=== PATIENT | female | born 1960 | race Caucasian/White ===

== ENCOUNTER 2018-05-31 12:09 | Inpatient (IN) ==
[2018-05-31] MEDS ORDERED: Aluminum/Magnesium/Simethacone Susp 30 ML UDC PO PRN (15:39)
[2018-05-31] MEDS ORDERED: Bisacodyl 10 MG Supp RECTAL PRN (15:39)
[2018-05-31] MEDS: Senna/Docusate Sodium 8.6/50 MG Tablet PO SCH (21:11)
[2018-06-01 08:12] LABS: Anion Gap 9 meq/L (5-15); Blood Urea Nitrogen 9 mg/dL (7-18); Calcium 8.1 mg/dL (8.5-10.1); Carbon Dioxide 29.5 meq/L (21.0-32.0); Chloride 107 meq/L (98-107); Cholesterol 179 mg/dL (120-200); Glomerular Filtration Rate Greater Than 89 mL/min (>89); Glucose,Random 86 mg/dL (74-106); Potassium 3.3 meq/L (3.5-5.1); Sodium 145 meq/L (136-145); Triglycerides 83 mg/dL (42-150)
[2018-06-01 08:14] LABS: HDL Cholesterol 68.8 mg/dL (40.0-60.0); LDL Cholesterol,Calculated 94 mg/dL (0-99)
[2018-06-01] MEDS: Senna/Docusate Sodium 8.6/50 MG Tablet PO SCH (08:33)
--- NOTE | 2018-06-01 12:25 | P.HPPSY ---
Provisional Diagnosis Admission Date: May 31, 2018 15:03 [place] I.: 1. Adjustment disorder with disturbance of emotions and conduct Rule out major depressive episode 2. Alcohol use, rule out use disorder [place] II.: Deferred Competence Certification of Person's Competence To Provide Express and Informed Consent I have personally examined Camille Soto, a person being served at [facility] on, June 01, 2018 1225. Express and informed consent means consent voluntarily given in writing, by a competent person, after sufficient explanation and disclosure of the subject matter involved to enable the person to make a knowing and willful decision without any element of force, fraud, deceit, duress, or other form of constraint or coercion. This person is 18 years of age or older, is not now known to be incompetent to consent to treatment with a guardian advocate, and does not have a health care surrogate or proxy currently making medical treatment decisions. I have found this person to be one of the following: [X] Competent to provide express and informed consent, as defined above, for voluntary admission to this facility and is competent to provide express and informed consent for treatment. He/she has the consistent capacity to make well reasoned, willful, and knowing decisions concerning his or her medical or mental health treatment. The person fully and consistently understands the purpose of the admission for examination/placement and is fully capable of personally exercising all rights assured under [place] Incompetent to provide express and informed consent to voluntary admission, and this is incompetent to provide express and informed consent to treatment. The person must be transferred to involuntary status and a petition for a guardian advocate filed with the Circuit Court. [] Refusing to provide express and informed consent to voluntary admission but is competent to provide express and informed consent for treatment. The person must be discharged or transferred to involuntary status. Form shall be completed within 24 hours of a person's arrival at the receiving facility and filed in the clinical record of each person: 1. Admitted on a voluntary basis 2. Permitted to provide express and informed consent to his/her own treatment 3. Allowed to transfer from involuntary to voluntary status 4. Prior to permitting a person to consent to his or her own treatment after having been previously found incompetent to consent to treatment. History of Present Illness Capacity: Has capacity Chief Complaint: Overdose History of Present Illness: Ms. Soto is a 57-year-old female with a reported history of depression who presents in transfer from [facility] under a Rodrigues act. Documentation from outside hospital reviewed. Patient presented there initially on 05/28 following an overdose on approximately 30-40 carbamazepine tablets, which she takes for trigeminal neuralgia. Patient was admitted to the medical unit at [facility] for management of her her overdose. She was seen in psychological consultation by Dr. Mancia. Reviewing our electronic medical record, I see no previous psychiatric contact within our system. Patient seen and examined with nurse, Irena. Chart reviewed. Case discussed with nursing staff. On my examination today, the patient reports that her presenting ingestion was mediated by alcohol use. She says that she was feeling upset because of ongoing conflict with her over his emotional and physical distance. She went into her room to make her overdose, although was reportedly at home. She reports that following her overdose she called her sisters and one of her sisters called 911. Presently, she denies any ongoing suicidal ideation, intent or plan. She does admit to feeling somewhat depressed and guilty, but I can elicit no other depressive symptoms. She does admit that she has had suicidal thoughts in the past while intoxicated. I can elicit no symptoms of hypomania or torin presently, nor can I elicit any history of same. She denies any audiovisual hallucination. No delusional material elicited. The remainder of the psychiatric ROS is negative. No acute physical complaints. Past psychiatric history: The patient reports a history of depression. She is not presently under the care of a psychiatrist or therapist, although she has spoken with the therapist in the past. She is reportedly prescribed Lexapro 10 mg daily and Wellbutrin 150 mg daily from her general practitioner. She denies a history of psychiatric admissions or suicide attempts. Family history: The patient reports that her daughter and sister both struggle with depression and are on medication although she cannot remember what. She also notes that her father had some depressive symptoms but did not receive a formal diagnosis so far she knows. She denies a family history of substance use disorder or suicide. Chemical dependency history: The patient reports that she is a daily drinker. She usually drinks one beer or 2 glasses of wine. She has had a history of blackouts from heavy drinking in the past but denies any other consequences from her drinking including DUIs, job loss or relationship problems. No other substance use reported. Social history: The patient lives with her third . She has 3 children from her first marriage. 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 She denies any history. Denies any legal history. Denies any access to guns or firearms. She is a [employer]ism. She denies any history of trauma. Past medical history: Includes a history of trigeminal neuralgia and migraine headache. - Inpatient Certification I certify that the inpatient services were ordered in accordance with Medicare regulations governing the order. This includes certification that hospital inpatient services are reasonable and necessary and in the case of services not specified as inpatient-only under 42 CFR 419.22(n), that they are appropriately provided as inpatient services in accordance to with the 2-midnight benchmark under 43 CFR 412.3(e) I certify that inpatient psychiatric hospital services are medically necessary. Evaluation and treatment and/or diagnostic testing are expected to improve the patient's condition. The patient needs on a daily basis, active treatment furnished directly by or requiring the supervision of inpatient psychiatric facility personnel. Estimated Total Length of Stay (Days): 5 (3-5) Plans for Post Hospital Care: Not yet determined Review of Systems All other systems reviewed negative except as stated in HPI [facility] - History History Provided By: Patient, Medical Record - Medical History Medical History: Medical History (Last Updated 05/31/18 @ 17:46 by Irena Guevara RN) Depression Fibromyalgia Hx of hysterectomy Trigeminal neuralgia of right side of face Vertigo - Tobacco History Second Hand Smoke Exposure: No Smoking Status: Never smoker - Alcohol History How Often Do You Have a Drink Containing Alcohol: 4 or more times a week - Substance Use History Substance History: Active Abuse - Substance Use Type Alcohol Status: Active Route Used: By Mouth Frequency: Pt reports 1-2 glasses of wine daily Reason for Use: Calm Down, Feels Good Quality Measures - Patient Strengths Patient's strengths (minimum of 2): In a monitored setting. Verbally fluent. Medications and Allergies Active Medications: Active Medications Al Hydrox/Mg Hydrox/Simethicone (Mag-Al Plus Susp Liq) 30 ml PO Q6H PRN PRN Reason: DYSPEPSIA Al Hydroxide/Mg Hydroxide (Milk Of Magnesia Liq) 30 ml PO Q12H PRN PRN Reason: Mild Constipation Bisacodyl (Dulcolax Supp) 10 mg RECTAL DAILY PRN PRN Reason: SEVERE CONSITIPATION Lactulose (Lactulose Liq) 30 ml PO DAILY PRN PRN Reason: SEVERE CONSITIPATION Senna/Docusate Sodium (Maddy-Colace) 1 tab PO BID [facility]ARA Last Admin: 06/01/18 08:33 Dose: Not Given Sennosides (Senokot) 17.2 mg PO Q12H PRN PRN Reason: Moderate Constipation Allergies Allergy/AdvReac Type Severity Reaction Status Date / Time amoxicillin Allergy Unknown Hives Verified 05/31/18 15:29 adhesive tape AdvReac Unknown Redness of Verified 05/31/18 15:30 Skin Home Medications Medication Instructions Recorded Confirmed Type bupropion HCl 150 mg PO QAM 05/31/18 05/31/18 History carbamazepine [Tegretol] 400 mg PO BID 05/31/18 05/31/18 History escitalopram oxalate [Lexapro] 10 mg PO DAILY 05/31/18 05/31/18 History estradiol 1 patch TRANSDERMAL QWEEK 05/31/18 05/31/18 History vkuqgyz-wzyapxjhg-zpflekyriogb 1 cap PO Q4H PRN 05/31/18 05/31/18 History zolmitriptan 0 PO .COMPLEX PRN 05/31/18 History Results - Labs CBC & Chem 7: 06/01/18 06:50 Labs: Laboratory Results - last 24 hr 06/01/18 06:50 Sodium 145 Potassium 3.3 L Chloride 107 Carbon Dioxide 29.5 Anion Gap 9 BUN 9 Creatinine 0.44 L Estimated GFR Greater than 89 Random Glucose 86 Calcium 8.1 L Triglycerides 83 Cholesterol 179 LDL Cholesterol, Calc 94 HDL Cholesterol 68.8 H Cholesterol/HDL Ratio 2.60 Laboratories from outside hospital reviewed: Carbamazepine level on initial presentation was greater than 20. Carbamazepine level trended downward, and last level I see was 8.0 CBC at outside hospital from 05/31 revealed mild macrocytic anemia. No evidence of transaminitis. Urine toxicology on presentation to outside hospital was negative. Exam Vital signs: Vital Signs 05/31/18 15:45 05/31/18 18:00 05/31/18 21:00 Temperature 98.8 F 98.4 F Pulse Rate 64 65 62 Respiratory Rate 16 16 Blood Pressure 158/69 H 173/97 H 138/60 Pulse Oximetry 98 98 Intake & Output 05/31/18 06/01/18 06/01/18 18:59 06:59 18:59 Weight 70.2 kg Other: Weight On Admission 70.2 kg Narrative: Physical examination completed by medical provider at outside hospital. On my examination today, the patient appears to be in no acute physical distress. No motor abnormalities noted. No signs of GABAergic withdrawal noted. Labs and vital signs reviewed. Mental Status Examination Appearance: Appropriate Consciousness: Alert Orientation: x4 Motor Activity: Normal gait, Other (No motor abnormalities noted) Speech: Unremarkable Language: Adequate Fund of Knowledge: Adequate Attention and Concentration: Adequate Memory: Unremarkable (Grossly intact on clinical exam) Mood: Other (Mildly dysphoric) Affect: Other (Tearful at times) Thought Process & Associations: Intact, Logical, Linear Thought Content: Appropriate Hallucination Type: None Delusion Type: None Suicidal Ideation: No Suicidal Plan: No Suicidal Intention: No Homicidal Ideation: No Homicidal Plan: No Homicidal Intention: No Insight: Fair Judgment: Impulsive Assessment and Plan - Assessment (1) Adjustment disorder with mixed disturbance of emotions and conduct Code(s): F43.25 - Adjustment disorder with mixed disturbance of emotions and conduct Status: Acute (2) Alcohol use Code(s): Z78.9 - Other specified health status Status: Acute - Plan Plan: 57-year-old female with psychiatric history as detailed above who presents in transfer from outside hospital under a Rodrigues act. On my examination today, the patient reports that she made her overdose impulsively and in the setting of alcohol intoxication. Although she denies ongoing suicidal ideation she does admit to feelings of depression, although it is not clear if her current symptomatology meets criteria for a major depressive episode. I will plan to admit the patient to the inpatient psychiatric unit for observation for any ongoing impairments in safety as well as for medication adjustment. Admit inpatient. Voluntary status. Titrate Lexapro to 20 mg daily to target dysphoria. Continue Wellbutrin as ordered. Patient denies a history of seizure disorder or eating disorder. We did discuss concerns related to Wellbutrin in patients with alcohol use disorder. Atarax as needed for anxiety. R/B/A for medications discussed with patient. Resume general medical medications. Hospitalist consult. CIWA scale with Ativan for the management of any withdrawal. Thiamine and folate. Seizure precautions. Vitals every shift. Counselor to see. Disposition planning. Estimated length of stay: 3-5 days. Justification for Continued Inpatient Stay: See above Discharge Planning: Pending outcome of observation Request Healthcare Surrogate/Guardian Advocate?: No
[2018-06-01] MEDS ORDERED: [UNRECOGNIZED DRUG - OTHER] PO PRN (13:27)
[2018-06-01] MEDS ORDERED: Acetaminophen 325 MG Tablet PO PRN (13:29)
[2018-06-01] MEDS ORDERED: ESTRADIOL 0.075 MG/24 HR TOPICAL SCH (14:00)
[2018-06-01] MEDS ORDERED: LORazepam 1 MG Tablet PO PRN (14:53)
[2018-06-01] MEDS: Escitalopram 10 MG Tablet PO SCH (15:17)
[2018-06-01] MEDS: buPROPion 150 MG 12 HR Tablet PO SCH (15:17)
[2018-06-01 16:48] LABS: Hemoglobin A1c 5.1 % (4.3-6.0)
--- NOTE | 2018-06-01 17:00 | P.CONIM ---
History of Present Illness Requesting Physician: Marco Antonio Norwood Reason for Consult: Medical management Primary Care Provider: UNKNOWN History of Present Illness: This a 57-year-old female patient with past medical history which includes depression, fibromyalgia, trigeminal neuralgia, migraine headaches, vertigo. Patient currently inpatient psychiatric center we have been consulted for assistance with medical management. Per nurse and patient she was recently admitted to [facility] 05/28/2018 after Tegretol overdose. Patient reports she took approximately 30-40 200 mg Tegretol. Patient then presented to [facility] required intubation was extubated, stabilized and transferred to inpatient psychiatric center for further psychiatric management. Patient's nurse was verbally told that patient had a sputum culture which was, "positive," although we do not have records of sputum culture or results. Patient does endorse continued cough which is currently dry and nonproductive. Patient feels that her cough is getting better. Patient denies subjective fevers, chills nausea vomiting diarrhea constipation shortness of breath or chest pain. Review of Systems All other systems reviewed negative except as stated in HPI [facility] - History History Provided By: Patient, Medical Record - Medical History Medical History: Medical History (Last Updated 05/31/18 @ 17:46 by Irena Guevara RN) Depression Fibromyalgia Hx of hysterectomy Trigeminal neuralgia of right side of face Vertigo - Tobacco History Second Hand Smoke Exposure: No Smoking Status: Never smoker - Alcohol History How Often Do You Have a Drink Containing Alcohol: 4 or more times a week - Substance Use History Substance History: Active Abuse - Substance Use Type Alcohol Type: only drinks a glass a day but willing to stop has had times with none Status: Active Route Used: By Mouth Frequency: Pt reports 1-2 glasses of wine daily Reason for Use: Calm Down, Feels Good Comment: does not appear addicted but does not want to take risks Medications and Allergies Active Medications: Active Medications Acetaminophen (Tylenol) 650 mg PO Q4H PRN PRN Reason: PAIN 1-10 AND/OR FEVER >101F Last Admin: 06/01/18 15:17 Dose: 650 mg Al Hydrox/Mg Hydrox/Simethicone (Mag-Al Plus Susp Liq) 30 ml PO Q6H PRN PRN Reason: DYSPEPSIA Al Hydroxide/Mg Hydroxide (Milk Of Magnesia Liq) 30 ml PO Q12H PRN PRN Reason: Mild Constipation Bupropion HCl (Wellbutrin Sr) 150 mg PO DAILY [facility] Last Admin: 06/01/18 15:17 Dose: 150 mg Carbamazepine (Tegretol) 400 mg PO BID [facility] Escitalopram Oxalate (Lexapro) 20 mg PO DAILY [facility] Last Admin: 06/01/18 15:17 Dose: 20 mg Flumazenil (Romazecon Inj) 0.2 mg IV.PUSH Q1M PRN PRN Reason: OVERSEDATION Folic Acid (Folic Acid) 1 mg PO DAILY [facility] Stop: 06/07/18 08:59 Hydroxyzine HCl (Atarax) 25 mg PO Q6H PRN PRN Reason: ANXIETY Lorazepam (Ativan) 1 mg PO Q4H PRN PRN Reason: for CIWA 8-10 Lorazepam (Ativan) 2 mg PO Q2H PRN PRN Reason: for CIWA 11-14 Lorazepam (Ativan Inj) 2 mg IV.PUSH Q1H PRN PRN Reason: for CIWA 15-20 Lorazepam (Ativan Inj) 1 mg IV.PUSH Q4H PRN PRN Reason: for CIWA 8-10 Lorazepam (Ativan Inj) 2 mg IV.PUSH Q2H PRN PRN Reason: for CIWA 11-14 Lorazepam (Ativan Inj) 2 mg IV.PUSH Q15M PRN PRN Reason: for CIWA > 20 Multivitamins/Minerals (Theragran-M) 1 tab PO DAILY [facility] Stop: 06/07/18 08:59 (Isometh-Dichloral- Acetaminophn [ Isometh-Dichloral- Acetaminophn 65/100/325mg ] 1 Cap) 1 each PO Q4H PRN PRN Reason: Migraine Headache Estradiol 0.075mg/ (24hr Patch) 1 each TOPICAL WEEKLY [facility] Thiamine HCl (Vitamin B1) 100 mg PO DAILY [facility] Allergies Allergy/AdvReac Type Severity Reaction Status Date / Time amoxicillin Allergy Unknown Hives Verified 05/31/18 15:29 adhesive tape AdvReac Unknown Redness of Verified 05/31/18 15:30 Skin Home Medications Medication Instructions Recorded Confirmed Type bupropion HCl 150 mg PO QAM 05/31/18 05/31/18 History carbamazepine [Tegretol] 400 mg PO BID 05/31/18 05/31/18 History escitalopram oxalate [Lexapro] 10 mg PO DAILY 05/31/18 05/31/18 History estradiol 1 patch TRANSDERMAL QWEEK 05/31/18 05/31/18 History togmlpv-zkjuzpzbr-fgbviytulnvy 1 cap PO Q4H PRN 05/31/18 05/31/18 History zolmitriptan 0 PO .COMPLEX PRN 05/31/18 History Exam Vital signs: Vital Signs 05/31/18 18:00 05/31/18 21:00 Temperature 98.4 F Pulse Rate 65 62 Respiratory Rate 16 Blood Pressure 173/97 H 138/60 Pulse Oximetry 98 Intake & Output 05/31/18 06/01/18 06/01/18 18:59 06:59 18:59 Weight 70.2 kg Other: Weight On Admission 70.2 kg Narrative: GENERAL: This is a well-nourished, well-developed patient, in no apparent distress. CARDIOVASCULAR: Regular rate and rhythm RESPIRATORY: Clear to auscultation. Breath sounds equal bilaterally. GASTROINTESTINAL: Abdomen soft, non-tender, nondistended. Normal active bowel sounds MUSCULOSKELETAL: Extremities without clubbing, cyanosis, or edema. NEURO: Alert & Oriented x4 to person, place, time, situation. Moves all ext x4 Results - Labs CBC & Chem 7: 06/01/18 06:50 Labs: Laboratory Results - last 24 hr 06/01/18 06:50 Sodium 145 Potassium 3.3 L Chloride 107 Carbon Dioxide 29.5 Anion Gap 9 BUN 9 Creatinine 0.44 L Estimated GFR Greater than 89 Random Glucose 86 Calcium 8.1 L Triglycerides 83 Cholesterol 179 LDL Cholesterol, Calc 94 HDL Cholesterol 68.8 H Cholesterol/HDL Ratio 2.60 Assessment and Plan - Plan Adjustment disorder with mixed disturbance of emotion and conduct Management per psychiatric team Cough Patient recently intubated for Tegretol overdose Request sputum culture and discharge summary from [facility] Repeat sputum culture CT chest without contrast to further evaluate CBC Patient currently afebrile and feels that the cough is getting better we will hold off on antibiotic treatment awaiting further information as patient seems stable DVT prophylaxis patient is ambulatory and low risk Discussed case with supervising physician Dr. Burgos
[2018-06-01 18:01] LABS: Albumin 3.1 g/dL (3.4-5.0)
[2018-06-01 18:26] LABS: Total Protein 6.5 g/dL (6.4-8.2)
[2018-06-01 18:38] LABS: Baso % (Auto) 0.8 % (0.0-2.0); Eos # (Auto) 0.1 th/mm3 (0.0-0.4); Eos % (Auto) 3.1 % (0.0-4.0); Hematocrit 30.8 % (35.0-46.0); Hemoglobin 10.9 gm/dL (11.6-15.3); Lymph # (Auto) 0.8 th/mm3 (1.0-4.8); Lymph % (Auto) 20.1 % (9.0-44.0); Mean Corpuscular HGB Conc 35.5 % (32.0-36.0); Mean Corpuscular Hemoglobin 34.7 pg (27.0-34.0); Mean Platelet Volume 7.5 fL (7.0-11.0); Mono # (Auto) 0.2 th/mm3 (0.0-0.9); Mono % (Auto) 6.4 % (0.0-8.0); Neut # (Auto) 2.7 th/mm3 (1.8-7.7); Neut % (Auto) 69.6 % (16.0-70.0); Platelet Count 254 th/mm3 (150-450); Red Blood Count 3.14 mil/mm3 (4.00-5.30); Red Cell Distribution Width 12.9 % (11.6-17.2); White Blood Count 3.9 th/mm3 (4.0-11.0)
[2018-06-01] MEDS: carBAMazepine 200 MG Tablet PO SCH (20:52)
[2018-06-01] MEDS ORDERED: carBAMazepine 200 MG Tablet PO SCH ×2 (21:00)
--- NOTE | 2018-06-02 00:13 | CT ---
EXAM DATE: 06/02/2018 12:02 AM EDT AGE/SEX: 57 years / Female INDICATIONS: Cough; post recent intubation due to overdose. CLINICAL DATA: This is the patient's initial encounter. Patient reports that signs and symptoms have been present for 1 day and indicates a pain score of 0/10. MEDICAL/SURGICAL HISTORY: . Fibromyalgia Hysterectomy. RADIATION DOSE: 6.59 CTDI (mGy) COMPARISON: No prior exams available for comparison. TECHNIQUE: Multiple contiguous axial images were obtained through the chest without contrast. Image s were obtained in suspended respiration using multiple row detector helical technique. Using automa allison exposure control and adjustment of the mA and/or kV according to patient size, radiation dose was kept as low as reasonably achievable to obtain optimal diagnostic quality images. DICOM format imag e data is available electronically for review and comparison. FINDINGS: There are very small bilateral pleural effusions. A mildly nodular infiltrate is seen in the bilatera l lower lobes. Individual nodules are up to 7 mm in size in the left lower lobe. No large or dense co nsolidation. No pneumothorax. No mediastinal, hilar or axillary lymphadenopathy. Coronary artery calcification present. 4 cm cyst seen of the visualized right kidney. CONCLUSION: 1. Very small bilateral pleural effusions. 2. Localized area of mildly nodular consolidation of the lower lobes, most likely infectious or infl ammatory. Individual nodules are up to 7 mm in size. Six-month follow-up noncontrast chest CT is true mmended. 3. Coronary artery calcification. Electronically signed by: iMn Zamora MD 06/02/2018 12:11 AM EDT
[2018-06-02 07:56] LABS: Baso % (Auto) 0.7 % (0.0-2.0); Eos # (Auto) 0.1 th/mm3 (0.0-0.4); Eos % (Auto) 3.1 % (0.0-4.0); Hematocrit 32.6 % (35.0-46.0); Hemoglobin 10.9 gm/dL (11.6-15.3); Lymph # (Auto) 0.9 th/mm3 (1.0-4.8); Lymph % (Auto) 27.8 % (9.0-44.0); Mean Corpuscular HGB Conc 33.5 % (32.0-36.0); Mean Corpuscular Hemoglobin 32.9 pg (27.0-34.0); Mean Corpuscular Volume 98.2 fL (80.0-100.0); Mean Platelet Volume 6.8 fL (7.0-11.0); Mono # (Auto) 0.3 th/mm3 (0.0-0.9); Mono % (Auto) 9.1 % (0.0-8.0); Neut % (Auto) 59.3 % (16.0-70.0); Platelet Count 272 th/mm3 (150-450); Red Blood Count 3.32 mil/mm3 (4.00-5.30); Red Cell Distribution Width 12.3 % (11.6-17.2); White Blood Count 3.3 th/mm3 (4.0-11.0)
[2018-06-02 08:27] LABS: Anion Gap 6 meq/L (5-15); Blood Urea Nitrogen 13 mg/dL (7-18); Calcium 8.1 mg/dL (8.5-10.1); Carbon Dioxide 32.4 meq/L (21.0-32.0); Chloride 107 meq/L (98-107); Glomerular Filtration Rate Greater Than 89 mL/min (>89); Glucose,Random 91 mg/dL (74-106); Magnesium 2.2 mg/dL (1.5-2.5); Potassium 3.7 meq/L (3.5-5.1); Sodium 145 meq/L (136-145)
[2018-06-02] MEDS ORDERED: ESTRADIOL 0.075 MG/24 HR TOPICAL SCH (09:00)
[2018-06-02] MEDS: Escitalopram 10 MG Tablet PO SCH (09:15)
[2018-06-02] MEDS: Multivitamin/Minerals Therapeutic Tablet PO SCH (09:15)
[2018-06-02] MEDS: buPROPion 150 MG 12 HR Tablet PO SCH (09:15)
[2018-06-02] MEDS: Folic Acid 1 MG Tablet PO SCH (09:15)
[2018-06-02] MEDS: carBAMazepine 200 MG Tablet PO SCH ×2 (09:16→20:34)
--- NOTE | 2018-06-02 09:28 | P.TTN ---
- Patient Problems Problems: 1. Discharge planning 2. Medication compliance 3. Knowledge deficit 4. Lack of coping skills - Progress Toward Goals Provider Present: Dr. Ricky Norwood Provider Input: patient will need psychiatric follow up. collateral from family will be helpful Nurse(s) Present: compliant Psychiatric Counselors Present: Samantha Issa LCSW Psychiatric Therapist Input: discussed her motivation for therapy in length. she is presenting as she is well established with doctors in [place], provided information and wants them to be aware of what happened and have continuum of care, she is very regretful and ashamed of what has happened, she appears to have an adjustment disorder due to her marriage struggles. she is very direct and goal oriented and appears insightful Group Spec/RT/OT/SENA Present: SENA Mckeon (new, ) - Documentation Teaching Recipient: Patient
--- NOTE | 2018-06-02 11:37 | P.PNPSY ---
Subjective Chief Complaint: Overdose Remarks: Patient seen and examined with counselor and nurse. Chart reviewed. Case discussed with nursing staff. No behavioral issues noted overnight. Case discussed in treatment team. Counselor plans to refer patient for psychiatric services in [place] where the patient plans to go after discharge. She also engaged the patient in a discussion of her alcohol use. Patient also reportedly had a visit with her yesterday evening. On my examination today, the patient reports that her visit with went very well. She notes with satisfaction that was emotionally engaged in their conversation yesterday evening and says of their marriage "there is a lot more there than I thought." No ongoing suicidal ideation. Affect is brighter and more euthymic. Denies side effects from medications. No physical complaints. Hopeful for discharge tomorrow. Vital Signs Temp Pulse Resp BP Pulse Ox 06/02/18 05:38 98.6 F 55 L 17 128/58 L 95 06/01/18 16:55 97.9 F 61 20 154/70 H 98 Intake and Output 06/01/18 06/02/18 06/02/18 22:59 06:59 14:59 Intake Total 720 / 720 Balance 720 / 720 Intake: Oral 720 / 720 Other: Date of Last Bowel Movement 06/01/18 Laboratory Results - last 24 hr 06/01/18 06/01/18 06/01/18 06:50 06:50 06:50 WBC 3.9 L RBC 3.14 L Hgb 10.9 L Hct 30.8 L MCV 98.0 MCH 34.7 H MCHC 35.5 RDW 12.9 Plt Count 254 MPV 7.5 Neut % (Auto) 69.6 Lymph % (Auto) 20.1 [place] % (Auto) 6.4 Eos % (Auto) 3.1 Baso % (Auto) 0.8 Neut # (Auto) 2.7 Lymph # (Auto) 0.8 L [place] # (Auto) 0.2 Eos # (Auto) 0.1 Baso # (Auto) 0.0 WBC Differential . Differential Comment Auto diff final Sodium Potassium Chloride Carbon Dioxide Anion Gap BUN Creatinine Estimated GFR Random Glucose Hemoglobin A1c 5.1 Calcium Magnesium Total Bilirubin 0.2 Direct Bilirubin 0.1 Indirect Bilirubin 0.1 AST 10 L ALT 17 Alkaline Phosphatase 48 Total Protein 6.5 Albumin 3.1 L Vitamin B12 400 06/02/18 06/02/18 07:17 07:17 WBC 3.3 L RBC 3.32 L Hgb 10.9 L Hct 32.6 L MCV 98.2 MCH 32.9 MCHC 33.5 RDW 12.3 Plt Count 272 MPV 6.8 L Neut % (Auto) 59.3 Lymph % (Auto) 27.8 [place] % (Auto) 9.1 H Eos % (Auto) 3.1 Baso % (Auto) 0.7 Neut # (Auto) 2.0 Lymph # (Auto) 0.9 L [place] # (Auto) 0.3 Eos # (Auto) 0.1 Baso # (Auto) 0.0 WBC Differential . Differential Comment Auto diff final Sodium 145 Potassium 3.7 Chloride 107 Carbon Dioxide 32.4 H Anion Gap 6 BUN 13 Creatinine 0.51 Estimated GFR Greater than 89 Random Glucose 91 Hemoglobin A1c Calcium 8.1 L Magnesium 2.2 Total Bilirubin Direct Bilirubin Indirect Bilirubin AST ALT Alkaline Phosphatase Total Protein Albumin Vitamin B12 Labs reviewed. Stable anemia. Leukopenia noted. Vitamin B12 level within normal limits. Impressions Chest CT 06/01/18 00:00 CONCLUSION: 1. Very small bilateral pleural effusions. 2. Localized area of mildly nodular consolidation of the lower lobes, most likely infectious or inflammatory. Individual nodules are up to 7 mm in size. Six-month follow-up noncontrast chest CT is recommended. 3. Coronary artery calcification. Mental Status Examination Appearance: Appropriate Consciousness: Alert Orientation: x4 Motor Activity: Normal gait, Other (No abnormal motor movements noted) Speech: Unremarkable Language: Adequate Fund of Knowledge: Adequate Attention and Concentration: Adequate Memory: Unremarkable (Grossly intact on clinical exam) Mood: Other (Improved today) Affect: Appropriate, Euthymic Thought Process & Associations: Intact, Logical, Linear Thought Content: Appropriate Hallucination Type: None Delusion Type: None Suicidal Ideation: No Homicidal Ideation: No Insight: Fair Judgment: Impulsive Mental Status Exam Remarks: No signs of withdrawal noted. Assessment and Plan - Assessment (1) Adjustment disorder with mixed disturbance of emotions and conduct Code(s): F43.25 - Adjustment disorder with mixed disturbance of emotions and conduct Status: Acute (2) Alcohol use Code(s): Z78.9 - Other specified health status Status: Acute - Plan Plan: Presenting adjustment reaction appears to be resolving following outpouring of support from during visitation yesterday evening. Continue increased dose of Lexapro as ordered. Continue to monitor on the inpatient unit. Hospitalist input noted and appreciated. Continue other medications and care as ordered. Justification for Continued Inpatient Stay: Monitoring for impairment in safety, none noted Discharge Planning: Possible discharge tomorrow, Friday Request Healthcare Surrogate/Guardian Advocate?: No
--- NOTE | 2018-06-02 14:09 | P.PN ---
Subjective Interval history: Follow up: cough Patient feels that cough is getting better denies SOB Physical Exam Vital signs: Vital Signs 06/01/18 16:55 06/02/18 05:38 Temperature 97.9 F 98.6 F Pulse Rate 61 55 L Respiratory Rate 20 17 Blood Pressure 154/70 H 128/58 L Pulse Oximetry 98 95 Intake & Output 06/01/18 06/02/18 06/02/18 18:59 06:59 18:59 Intake Total 720 / 720 Balance 720 / 720 Intake: Oral 720 / 720 Other: Date of Last Bowel Movement 06/01/18 Narrative: GENERAL: This is a well-nourished, well-developed patient, in no apparent distress. CARDIOVASCULAR: Regular rate and rhythm RESPIRATORY: Clear to auscultation. Breath sounds equal bilaterally. GASTROINTESTINAL: Abdomen soft, non-tender, nondistended. Normal active bowel sounds MUSCULOSKELETAL: Extremities without clubbing, cyanosis, or edema. NEURO: Alert & Oriented x4 to person, place, time, situation. Moves all ext x4 Results - Labs CBC & Chem 7: 06/02/18 07:17 06/02/18 07:17 Laboratory Results - last 24 hr 06/01/18 06/01/18 06/01/18 06:50 06:50 06:50 WBC 3.9 L RBC 3.14 L Hgb 10.9 L Hct 30.8 L MCV 98.0 MCH 34.7 H MCHC 35.5 RDW 12.9 Plt Count 254 MPV 7.5 Neut % (Auto) 69.6 Lymph % (Auto) 20.1 [place] % (Auto) 6.4 Eos % (Auto) 3.1 Baso % (Auto) 0.8 Neut # (Auto) 2.7 Lymph # (Auto) 0.8 L [place] # (Auto) 0.2 Eos # (Auto) 0.1 Baso # (Auto) 0.0 WBC Differential . Differential Comment Auto diff final Sodium Potassium Chloride Carbon Dioxide Anion Gap BUN Creatinine Estimated GFR Random Glucose Hemoglobin A1c 5.1 Calcium Magnesium Total Bilirubin 0.2 Direct Bilirubin 0.1 Indirect Bilirubin 0.1 AST 10 L ALT 17 Alkaline Phosphatase 48 Total Protein 6.5 Albumin 3.1 L Vitamin B12 400 06/02/18 06/02/18 07:17 07:17 WBC 3.3 L RBC 3.32 L Hgb 10.9 L Hct 32.6 L MCV 98.2 MCH 32.9 MCHC 33.5 RDW 12.3 Plt Count 272 MPV 6.8 L Neut % (Auto) 59.3 Lymph % (Auto) 27.8 [place] % (Auto) 9.1 H Eos % (Auto) 3.1 Baso % (Auto) 0.7 Neut # (Auto) 2.0 Lymph # (Auto) 0.9 L [place] # (Auto) 0.3 Eos # (Auto) 0.1 Baso # (Auto) 0.0 WBC Differential . Differential Comment Auto diff final Sodium 145 Potassium 3.7 Chloride 107 Carbon Dioxide 32.4 H Anion Gap 6 BUN 13 Creatinine 0.51 Estimated GFR Greater than 89 Random Glucose 91 Hemoglobin A1c Calcium 8.1 L Magnesium 2.2 Total Bilirubin Direct Bilirubin Indirect Bilirubin AST ALT Alkaline Phosphatase Total Protein Albumin Vitamin B12 - Imaging Impressions Chest CT 06/01/18 00:00 CONCLUSION: 1. Very small bilateral pleural effusions. 2. Localized area of mildly nodular consolidation of the lower lobes, most likely infectious or inflammatory. Individual nodules are up to 7 mm in size. Six-month follow-up noncontrast chest CT is recommended. 3. Coronary artery calcification. Assessment and Plan - Plan Adjustment disorder with mixed disturbance of emotion and conduct Management per psychiatric team PNA Cough Patient recently intubated for Tegretol overdose Request sputum culture and discharge summary from [facility] Repeat sputum culture CT chest CONCLUSION: 1. Very small bilateral pleural effusions. 2. Localized area of mildly nodular consolidation of the lower lobes, most likely infectious or inflammatory. Individual nodules are up to 7 mm in size. Six-month follow-up noncontrast chest CT is recommended. 3. Coronary artery calcification. results discussed with patient, patient verbalized understanding to have follow up CT chest in 3-6 months, patient reports that she is moving [place] to [place] where she follows with Dr. Cristin Wiley WBC 3.3, afebrile Start Levaquin 500 mg PO daily x 7 days, Mucinex BID and duonebs Q6H while awake EKG ordered now an in AM as Levaquin can cause QT prolongation DVT prophylaxis patient is ambulatory and low risk Discussed case with supervising physician Dr. Burgos
[2018-06-02] MEDS: levoFLOXacin 500 MG Tablet PO SCH (14:11)
[2018-06-02] MEDS: guaiFENesin 600 MG ER Tablet PO SCH (20:35)
[2018-06-03] MEDS: Escitalopram 10 MG Tablet PO SCH (08:38)
[2018-06-03] MEDS: levoFLOXacin 500 MG Tablet PO SCH (08:39)
[2018-06-03] MEDS: Folic Acid 1 MG Tablet PO SCH (08:39)
[2018-06-03] MEDS: carBAMazepine 200 MG Tablet PO SCH (08:39)
[2018-06-03] MEDS: buPROPion 150 MG 12 HR Tablet PO SCH (08:39)
[2018-06-03] MEDS: guaiFENesin 600 MG ER Tablet PO SCH (08:39)
[2018-06-03] MEDS: Multivitamin/Minerals Therapeutic Tablet PO SCH (08:39)
--- NOTE | 2018-06-03 11:20 | P.DSPSY ---
Psychiatry Discharge Summary Inpatient Psychiatric care?: Yes Advance Directives: No Mental Health Advance Directive: No Health Care Proxy: No - Admission Admission Date: May 31, 2018 15:03 - Admission Diagnosis (1) Adjustment disorder with mixed disturbance of emotions and conduct Code(s): F43.25 - Adjustment disorder with mixed disturbance of emotions and conduct (2) Alcohol use Code(s): Z78.9 - Other specified health status Brief History: Ms. Soto is a 57-year-old female with a reported history of depression who presents in transfer from [facility] under a Rodrigues act. Documentation from outside hospital reviewed. Patient presented there initially on 05/28 following an overdose on approximately 30-40 carbamazepine tablets, which she takes for trigeminal neuralgia. Patient was admitted to the medical unit at [facility] for management of her her overdose. She was seen in psychological consultation by Dr. Mancia. Reviewing our electronic medical record, I see no previous psychiatric contact within our system. Patient seen and examined with nurse, Irena. Chart reviewed. Case discussed with nursing staff. On my examination today, the patient reports that her presenting ingestion was mediated by alcohol use. She says that she was feeling upset because of ongoing conflict with her over his emotional and physical distance. She went into her room to make her overdose, although was reportedly at home. She reports that following her overdose she called her sisters and one of her sisters called 911. Presently, she denies any ongoing suicidal ideation, intent or plan. She does admit to feeling somewhat depressed and guilty, but I can elicit no other depressive symptoms. She does admit that she has had suicidal thoughts in the past while intoxicated. I can elicit no symptoms of hypomania or torin presently, nor can I elicit any history of same. She denies any audiovisual hallucination. No delusional material elicited. The remainder of the psychiatric ROS is negative. No acute physical complaints. Past psychiatric history: The patient reports a history of depression. She is not presently under the care of a psychiatrist or therapist, although she has spoken with the therapist in the past. She is reportedly prescribed Lexapro 10 mg daily and Wellbutrin 150 mg daily from her general practitioner. She denies a history of psychiatric admissions or suicide attempts. Family history: The patient reports that her daughter and sister both struggle with depression and are on medication although she cannot remember what. She also notes that her father had some depressive symptoms but did not receive a formal diagnosis so far she knows. She denies a family history of substance use disorder or suicide. Chemical dependency history: The patient reports that she is a daily drinker. She usually drinks one beer or 2 glasses of wine. She has had a history of blackouts from heavy drinking in the past but denies any other consequences from her drinking including DUIs, job loss or relationship problems. No other substance use reported. Social history: The patient lives with her third . She has 3 children from her first marriage. 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 She denies any history. Denies any legal history. Denies any access to guns or firearms. She is a Bahai. She denies any history of trauma. Past medical history: Includes a history of trigeminal neuralgia and migraine headache. Tobacco Use In Past 30 Days: No How Often Do You Have a Drink Containing Alcohol: 4 or more times a week Hospital Course: Patient was admitted to a locked, inpatient psychiatric unit. A general medical consultation was obtained. Appropriate precautions were in place throughout patient's hospital stay. Patient was seen and examined on the unit by psychiatry and also visited by counselor. Psychotropic medications were adjusted. There was no evidence of any suicidality or homicidality on the inpatient unit. The patient remained in good behavioral control. There was no evidence of self-care deficit. On the day of discharge: Patient seen and examined with nurse. Chart reviewed. Case discussed with nursing staff. No behavioral issues noted overnight. On my examination today, the patient is requesting discharge from the inpatient psychiatric unit today. She notes that she had a visit with her family including her last night that went well. She says that she plans to pursue marriage counseling with her . She tells me "I found out he loves me a lot more than I thought." She denies any suicidal or homicidal ideation, intent or plan. Affect is bright and euthymic, and I can elicit no depressive or hypomanic/manic symptoms. No audiovisual hallucinations. No delusional material elicited. There is no evidence of impairment in reality construction. She denies side effects from medications. She has no physical complaints. Suicide and violence risk assessment on day of discharge both suggest lower imminent risk from mental illness, and the patient's level of function is adequate for outpatient care. Patient has maximized benefit from this inpatient psychiatric hospital stay and will be discharged today with psychiatric follow-up as arranged by counselor. Patient is also to follow up with primary care. Hospitalist has prescribed antibiotic, and I have provided the patient with a prescription for increased dose of Lexapro. The patient reports that she has an adequate supply of other medications at home. I have counseled the patient to abstain from substances of abuse including alcohol and have recommended chemical dependency evaluation on an outpatient basis. I have counseled the patient regarding warning signs for need to return to the psychiatric emergency room as part of a general safety plan. - Discharge Discharge Date: 06/03/18 - Discharge Diagnosis (1) Adjustment disorder with mixed disturbance of emotions and conduct Diagnosis: Principal (Resolved) Code(s): F43.25 - Adjustment disorder with mixed disturbance of emotions and conduct Status: Resolved (2) Alcohol use Diagnosis: Secondary (Counseled to quit) Code(s): Z78.9 - Other specified health status Status: Acute Discharge Disposition: Home - Discharge Instructions Discharge Diet: Regular Diet Activities You Can Perform: Weight Bearing As Tolerat - Discharge Time <= 30 minutes Mental Status Examination Appearance: Appropriate Consciousness: Alert Orientation: x4 Motor Activity: Normal gait, Other (No motor abnormalities noted.) Speech: Unremarkable Language: Adequate Fund of Knowledge: Adequate Attention and Concentration: Adequate Memory: Unremarkable (Remains grossly intact on clinical exam.) Mood: Appropriate Affect: Appropriate, Euthymic Thought Process & Associations: Intact, Logical, Goal directed, Linear Thought Content: Appropriate Hallucination Type: None Delusion Type: None Suicidal Ideation: No Suicidal Plan: No Suicidal Intention: No Homicidal Ideation: No Homicidal Plan: No Homicidal Intention: No Insight: Adequate Judgment: Adequate Discharge/Advance Care Plan - Results Vital Signs: Last Vital Signs Temp 98.2 F 06/03/18 05:33 Pulse 60 06/03/18 09:07 Resp 16 06/03/18 09:07 BP 120/59 L 06/03/18 05:33 Pulse Ox 97 06/03/18 05:33 Lab Results: Laboratory Results Hemoglobin A1c 5.1 % (4.3-6.0) 06/01/18 06:50 Triglycerides 83 mg/dL (42-150) 06/01/18 06:50 Cholesterol 179 mg/dL (120-200) 06/01/18 06:50 LDL Cholesterol, Calc 94 mg/dL (0-99) 06/01/18 06:50 HDL Cholesterol 68.8 mg/dL (40.0-60.0) H 06/01/18 06:50 Summary of Procedures: None done Imaging: ITS Impressions Chest CT 06/01/18 00:00 CONCLUSION: 1. Very small bilateral pleural effusions. 2. Localized area of mildly nodular consolidation of the lower lobes, most likely infectious or inflammatory. Individual nodules are up to 7 mm in size. Six-month follow-up noncontrast chest CT is recommended. 3. Coronary artery calcification. Pending Results: None - Medications Number of antipsychotic medications at discharge: 0 - Discharge Care Plan Goals to Promote Your Health: * To prevent worsening of your condition and complications * To maintain your health at the optimal level Directions to Meet Your Goals: Take your medications as prescribed Follow your dietary instruction Follow activity as directed Keep your appointments as scheduled Take your immunizations and boosters as scheduled If your symptoms worsen call your PCP, if no PCP go to Urgent Care Center or Emergency Room For 28/04 questions related to your inpatient stay or results of tests pending at discharge, please contact Dr. Marco Antonio Norwood MD at Smoking is Dangerous to Your Health. Avoid second hand smoking
--- NOTE | 2018-06-03 21:12 | ECG ---
Date Performed: 06/03/2018 Time Performed: 07:41:10 PTAGE: 58 years EKG: SINUS BRADYCARDIA POSSIBLE LEFT ATRIAL ENLARGEMENT BORDERLINE ECG PREVIOUS TRACING : 06/02/2018 16.38 Since the previous tracing, no significant change noted DOCTOR: Mason To Interpretating Date/Time 06/03/2018 21:10:35
--- NOTE | 2018-06-03 21:37 | ECG ---
Date Performed: 06/02/2018 Time Performed: 16:38:04 PTAGE: 57 years EKG: SINUS BRADYCARDIA WITH OCCASIONAL SUPRAVENTRICULAR PREMATURE COMPLEXES POSSIBLE LEFT ATRIAL ENLARGEMENT BORDERLINE ECG NO PREVIOUS TRACING DOCTOR: Mason To Interpretating Date/Time 06/03/2018 21:36:23
== END 2018-06-03 13:20 | disposition home or self-care (01) ==
LOC: H260 15:03
PROVIDERS: ADMIT Psychiatry & Neurology Psychiatry; ATTEND Psychiatry & Neurology Psychiatry